=== PATIENT | female | born 2005 | race Caucasian/White ===

== ENCOUNTER 2025-08-30 18:31 | Emergency (ER) | payer SELFPAY ==
[2025-08-30 18:41] VITALS: BP 90/58
[2025-08-30 19:02] LABS: Hematocrit 36.8 % (37.0-47.0); Hemoglobin 12.9 g/dL (12.0-16.0); Mean Corp Hgb Conc. 35.1 g/dL (33.0-37.0); Mean Corpuscular Volume 86.6 fL (81.0-99.0); Nucleated Red Blood Cells % 0 %; Platelet Count 282 10^3/uL (130-400); Red Cell Dist. Width 11.8 % (11.5-14.5)
[2025-08-30 19:23] LABS: HCG, Serum Qualitative Screen Negative
[2025-08-30 19:27] LABS: ALT (SGPT) 27 U/L (0-35); AST (SGOT) 24 U/L (14-36); Albumin 4.4 g/dl (3.5-5.0); Alkaline Phosphatase 61 U/L (38-126); Blood Urea Nitrogen 11 mg/dl (7-17); Calcium 9.3 mg/dl (8.4-10.2); Carbon Dioxide 26 mmol/L (22-30); Chloride 101 mmol/L (98-107); Glucose 87 mg/dl (70-99); Potassium 4.1 mmol/L (3.5-5.1); Sodium 132 mmol/L (135-145); Total Protein 7.7 g/dl (6.3-8.2); eGFR > 60.00
[2025-08-30 20:14] VITALS: BP 113/58
--- NOTE | 2025-08-30 20:31 | ED.GENMED ---
History of Present Illness
General
Chief Complaint: Fever
Source: patient and family
Exam Limitations: none
Time Seen by Provider: 08/30/25 20:16
Nursing documentation reviewed up to this point in time: agreed with
History of Present Illness
History of Present Illness:
Note:
CHIEF COMPLAINT(S)
Fever and concerns about potential Listeria exposure.
HISTORY OF PRESENT ILLNESS
The patient is a 20-year-old female who presented to the emergency department with fever and concern about possible Listeria exposure after consuming recently recalled cheese. She reported receiving an email notification about a recall on a type of
cheese she consumed that was potentially linked to Listeria contamination. The patient stated she has been feeling generally unwell and noted a fever reaching 102.6�F. She did not report significant gastrointestinal symptoms typically associated
with Listeria, but expressed concern given the exposure history. She also mentioned experiencing a sore throat. There were no remarkable respiratory symptoms apart from some noticeable upper respiratory sounds, which she mentioned as a constant
issue possibly due to adenoids or nasal passage narrowing.
PAST MEDICAL AND SURIGICAL HISTORY
The patient reports having [place] syndrome.
EXTERNAL RECORDS REVIEWED
Laboratory results show a bilirubin level of 5.1, which aligns with the diagnosis of [place] syndrome.
CHRONIC MEDICAL CONDITIONS SIGNIFICANTLY AFFECTING CARE
[place] syndrome is documented as a condition affecting the patient�s health, characterized by elevated bilirubin levels.
PHYSICAL EXAM
General: Alert, no acute distress.
Skin: Warm, dry.
Head: Normocephalic, atraumatic.
Neck: Supple, trachea midline.
Eye, Ears, Nose, Mouth, and Throat: Oral mucosa moist. Tonsils not significantly enlarged.
Cardiovascular: Normal peripheral perfusion, No edema.
Respiratory: Respirations are non-labored, lungs clear bilaterally.
Gastrointestinal: Abdomen nondistended
Back: Normal range of motion, Normal alignment.
Musculoskeletal: Normal range of motion, normal strength.
Neurological: Alert and oriented to person, place, time, and situation, No focal neurological deficit observed.
Psychiatric: Cooperative, appropriate mood and affect.
PLAN
1. Conduct a strep test to rule out bacterial infection as a cause of the sore throat.
2. Perform a chest X-ray to assess for any respiratory complications, acknowledging minimal radiation risk.
3. Conduct tests for influenza, COVID-19, and mononucleosis to cover viral causes of the patient�s fever and sore throat.
4. Provide educational materials about [place] syndrome for patient to understand her condition and to share with future healthcare providers.
DIFFERENTIAL DIAGNOSIS
The Differential Diagnosis includes, in no particular order and is not limited to:
1. Upper respiratory tract infection
2. Streptococcal pharyngitis
3. Influenza
4. COVID-19
5. Mononucleosis
6. Listeriosis
7. Viral pharyngitis
8. Allergic rhinitis
9. Gastroesophageal reflux-induced sore throat
10. Dehydration-related fever and malaise
Disposition:
SUMMARY OF ENCOUNTER
The patient is a 20-year-old female who presented to the emergency department with fever and concerns about a possible Listeria exposure. Upon evaluation, she was diagnosed with influenza A. She was non-toxic, well-appearing, and in no distress. A
chest x-ray was performed, which returned normal.
DISPOSITION
Stable for discharge.
ASSESSMENT
Influenza A infection.
PLAN
- The patient has elected not to take oseltamivir (Tamiflu) despite the diagnosis of influenza A.
- A note was provided for school indicating the patient may return in two days.
INDEPENDENT REVIEW OF LABS AND INTERPRETATION OF TESTS
My independent interpretation of the chest x-ray is normal, showing no respiratory complications.
PATIENT EDUCATION AND COUNSELING
The patient was counseled on her condition, influenza A, and the symptoms to watch for.
FOLLOW-UP INSTRUCTIONS
The patient is instructed to rest and return to school in two days, following the note provided.
MEDICAL DECISION MAKING
- Number and Complexity of Problems Addressed:
Chronic conditions affecting care include [place] syndrome. The Differential Diagnosis includes:
1. Upper respiratory tract infection
2. Streptococcal pharyngitis
3. Influenza
4. COVID-19
5. Mononucleosis
6. Listeriosis
7. Viral pharyngitis
8. Allergic rhinitis
9. Gastroesophageal reflux-induced sore throat
10. Dehydration-related fever and malaise
- Data:
Category 1
- My independent interpretation of the chest x-ray indicates normal findings.
-Risk:
Prescription medication for influenza (oseltamivir) was considered, but the patient elected not to take it.
DIAGNOSIS
Influenza A [J10.1]
Strep test canceled after influenza A positive
Past History
Social History
Tobacco: Non-smoker
Phy Exam
Physical Exam
Physical Exam:
.
Course
Orders/Labs/Results
Orders:
Orders
08/30/25 18:46
Test Result ONCE
08/30/25 18:55
CMP [Comprehensive Metabolic Panel] Urgent
Complete Blood Count/With Diff Urgent
HCG, Serum Qualitative Screen Urgent
08/30/25 20:20
COVID-19 Antigen Urgent
Source: Nasal Swab
Influenza A+B Rapid Molecular Urgent
NANDO Source: Nasal Swab
Specimen Description:
08/30/25 20:34
CR Chest - 2 Views Urgent
Comment:
Reason For Exam: fever, cough
Abnormal Lab Results
08/30/25
18:55
Hct 36.8 L %
(37.0-47.0)
Abs Immat Gran (auto) 0.1 H 10^3/uL
(0-0.05)
Absolute Neuts (auto) 7.7 H 10^3/uL
(1.4-6.5)
Absolute Lymphs (auto) 0.9 L 10^3/uL
(1.2-3.4)
Absolute Monos (auto) 0.9 H 10^3/uL
(0.1-0.6)
Immature Gran % 0.8 H %
(0-0.5)
Neutrophils % 80.1 H %
(42.2-75.2)
Lymphocytes % 8.9 L %
(20.5-51.1)
Monocytes % 9.7 H %
(1.7-9.3)
Sodium 132 L mmol/L
(135-145)
Total Bilirubin 5.1 H mg/dl
(0.2-1.3)
08/30/25 18:55
08/30/25 18:55
Vital Signs
Initial and Last Documented VS:
Initial Vital Signs
Temp Pulse Resp BP Pulse Ox
99.0 F 121 20 90/58 98
08/30/25 18:41 08/30/25 18:41 08/30/25 18:41 08/30/25 18:41 08/30/25 18:41
Last Documented Vital Signs
Temp Pulse Resp BP Pulse Ox
99.0 F 121 20 113/58 98
08/30/25 18:41 08/30/25 18:41 08/30/25 18:41 08/30/25 20:14 08/30/25 21:15
*Pulse Oximetry
SaO2: 98
Oxygen Mode of Delivery: Room air
Patient hypoxic: no
*Critical Care Note
Total Time (30-74mins, 75-104mins- exclusive of procedures): Not Applicable
ED Attending Note
-
Portions of this chart may have been created with voice recognition software.� Occasional wrong word or��sound alike� substitutions may have occurred due to the inherent limitations of voice recognition software.
Discharge Plan
Departure
Patient Disposition: Home (Routine Discharge)
Date of Disposition: 08/30/25
Time of Disposition: 22:04
Patient with high blood pressure during this ER visit?: No
Condition: Good
Discharge Problem:
Influenza A
Instructions: Fever, Adult (DC), Flu in adults (DC)
Referrals:
Kalpana Lewis MD [Family Provider, Internal Medicine] - Call in 1-3 days for appt
Stand Alone Forms: Back to School
Interventions
Interventions:
*Risk Screen - Suicide Last Done: 08/30/25 18:32
*General Assessment Last Done: 08/30/25 18:41
*Neglect/Abuse Screening Last Done: 08/30/25 20:26
*ED COVID-19 Vaccine History Last Done: 08/30/25 20:12
*ED Influenza Vaccine History Last Done: 08/30/25 20:12
[facility] Fall Risk Assessment Tool Last Done: 08/30/25 19:53
*Nursing Disposition Last Done: 08/30/25 22:27
ED- Neurological Assessment Last Done: 08/30/25 20:12
ED-Skin Assessment Last Done: 08/30/25 20:12
Discharge Date and Time
Discharge Date/Time: 08/30/25 22:28
Print Language: VINCENTIAN
[2025-08-30 20:44] LABS: COVID-19 Antigen Negative (Negative)
== END 2025-08-30 22:28 | disposition home or self-care (01) ==
LOC: EMR 18:31
PROVIDERS: Emergency Medicine; EMERGENCY PHYSICIAN Emergency Medicine; FAMILY PHYSICIAN Internal Medicine
DX: J10.1 Influenza due to other identified influenza virus with other respiratory manifestations (principal); E80.4 Gilbert syndrome; Z11.52 Encounter for screening for COVID-19
CPT/HCPCS: 99284; 71046; 80053; 84703; 85025; 87502; 87811